=== PATIENT | male | born 1950 | race African-American/Black ===

== ENCOUNTER 2021-03-10 15:32 | Emergency (ER) | payer MEDICARE ==
[~2021-03-10] VITALS: Ht 170.2 cm; Wt 76.4 kg
[2021-03-10] MEDS ORDERED: ENAL-36 PO (15:43)
[2021-03-10] MEDS ORDERED: ECOT81TA5 PO (15:43)
[2021-03-10] MEDS ORDERED: METF-839 PO (15:43)
[2021-03-10] MEDS ORDERED: GLIP1TAB11 PO (15:43)
[2021-03-10] MEDS ORDERED: SIMV20TA22 PO (15:43)
--- NOTE | 2021-03-10 16:44 | REP ---
INDICATION: CHEST PAIN COMPARISON: None. TECHNIQUE: Portable AP view of the chest FINDINGS: Mild cardiomegaly cannot be excluded. The lung spaulding demonstrate chronic appearing interstitial changes. No discrete focal consolidation, effusion or pneumothorax. Skeletal structures are intact. IMPRESSION: Chronic appearing changes. No focal consolidation or effusion. <Electronically signed by Juan José Hunt > 03/10/21 1640
[2021-03-10 17:21] LABS: BASO % 0.4 % (0.0-1.0); EOS # 0.1 10^3/uL (0.0-0.5); EOS % 1.7 % (0.0-3.0); HEMATOCRIT 41.2 % (42.0-52.0); HEMOGLOBIN 13.5 g/dl (13.5-17.5); LYMPH # 2.1 10^3/uL (1.5-5.0); LYMPH % 25.2 % (24.0-44.0); MEAN CORPUSCULAR HEMOGLOBIN 30.2 pg (27.0-33.0); MEAN CORPUSCULAR HGB CONC 32.8 g/dl (32.0-36.5); MEAN CORPUSCULAR VOLUME 92.2 fl (80.0-96.0); MONO # 0.9 10^3/uL (0.0-0.8); MONO % 10.5 % (2.0-8.0); NEUTROPHILS % 61.8 % (36.0-66.0); PLATELET COUNT, AUTOMATED 241 10^3/uL (150-450); RED BLOOD COUNT 4.47 10^6/uL (4.30-6.10); WHITE BLOOD COUNT 8.1 10^3/uL (4.0-10.0)
[2021-03-10 17:44] LABS: BLOOD UREA NITROGEN 12 MG/DL (7-18); CALCIUM LEVEL 9.3 MG/DL (8.8-10.2); CARBON DIOXIDE LEVEL 29 MEQ/L (21-32); CHLORIDE LEVEL 104 MEQ/L (98-107); CPK CREATINE PHOSPHOKINASE 322 U/L (39-308); CREATININE FOR GFR 0.84 MG/DL (0.70-1.30); GLOMERULAR FILTRATION RATE > 60.0 (>42); GLUCOSE, FASTING 98 MG/DL (70-100); MB/CK RELATIVE INDEX 0.93 (< OR =4); NT-PRO BNP 26 PG/ML (<125); POTASSIUM SERUM 4.1 MEQ/L (3.5-5.1); SODIUM LEVEL 138 MEQ/L (136-145); TROPONIN I < 0.02 NG/ML (< 0.10)
[2021-03-10] MEDS ORDERED: SIMV40TA20 PO (18:16)
[2021-03-10] MEDS ORDERED: LISI10TA22 PO (18:16)
[2021-03-10] MEDS ORDERED: PLAV1TAB2 PO (18:16)
[2021-03-10] MEDS ORDERED: CORE6.25 PO (18:16)
[2021-03-10] MEDS ORDERED: CARVedilol 6.25 MG TAB PO ONE (18:20)
[2021-03-10 18:46] VITALS: BP 151/61
[2021-03-10 18:54] VITALS: BP 151/61
--- NOTE | 2021-03-12 12:26 | ECGEPIP ---
[facility] - ED Test Date: 2021-03-10 Pat Name: DARLINE LAMAS Department: Room: - Gender: Male [employer]: jose luis : 1950 Requested By: Jarocho Lowe Order Number: [id number] Reading MD: Reta Johnson Measurements Intervals [place] Rate: 74 P: 62 [place]: 132 QRS: 5 QRSD: 96 T: 71 QT: 404 QTc: 448 Interpretive Statements Sinus rhythm with marked sinus arrhythmia Moderate voltage criteria for LVH, may be normal variant ( R in aVL , Sokolow- Diaz ) ST elevation, consider early repolarization, pericarditis, or injury Nonspecific T wave abnormality No prior Electronically Signed on 03-12-2021 12:26:33 EDT by Reta Johnson
== END 2021-03-10 19:14 | disposition home or self-care (01) ==
LOC: M ED 15:32
DX: I20.9 Angina pectoris, unspecified (principal); E11.9 Type 2 diabetes mellitus without complications; I10 Essential (primary) hypertension; E78.5 Hyperlipidemia, unspecified; Z79.82 Long term (current) use of aspirin; Z79.84 Long term (current) use of oral hypoglycemic drugs; Z79.899 Other long term (current) drug therapy